=== PATIENT | male | born 1980 | race Caucasian/White ===

== ENCOUNTER 2024-05-29 21:00 | Emergency (ER) | payer MEDICAID ==
[2024-05-29] MEDS ORDERED: ONDANSETRON HCL/PF 4 MG/2 ML VIAL ONE (22:44)
[2024-05-29] MEDS ORDERED: PROPOFOL 20 ML IV ONE (22:45)
[2024-05-29] MEDS ORDERED: MORPHINE SULFATE INJ 4 MG/ML DISP.SYRIN ONE (22:45)
[2024-05-29] MEDS: ONDANSETRON HCL/PF - ER 4 MG/2 ML VIAL IV ONE (22:49)
[2024-05-29] MEDS: MORPHINE SULFATE INJ 2 MG/ML DISP.SYRIN IV ONE (22:51)
[2024-05-29] MEDS ORDERED: NAPR-1009 PO (23:30)
[2024-05-29] MEDS: PROPOFOL 200 MG/20 ML VIAL IV ONE (23:39)
[2024-05-29 23:53] VITALS: BP 125/83; TEMP 98.2; O2SAT 99
[2024-05-29] MEDS ORDERED: KETO10TA2 PO (23:58)
[2024-05-29] MEDS ORDERED: CYCL5TAB PO (23:58)
== END 2024-05-29 23:58 | disposition home or self-care (01) ==
LOC: EDBD 21:11 → ER 21:11
DX: S43.035A Inferior dislocation of left humerus, initial encounter (principal); W18.39XA Other fall on same level, initial encounter; Y93.89 Activity, other specified; Y92.89 Other specified places as the place of occurrence of the external cause; Y99.8 Other external cause status
CPT/HCPCS: 99285; 23650; 96374; 96375; 99152; 73020 ×2; J2704; J2270; J2405 ×2; G0500